=== PATIENT | female | born 1955 | race Two or more races ===

== ENCOUNTER 2021-02-20 10:05 | Outpatient (CLI) | payer OTHER ==
[~2021-02-20 10:05] MED LIST: CIPROFLOXACIN750 MG PO; CLONAZEPAM1 MG PO; COLACE100 MG PO; METHYLPRED4 MG/DOSE- PO; NABUMETONE500 MG PO; NEURONTIN300 MG PO; NEURONTIN800 MG PO; PERCOCET 5/3251 TAB PO; SYNTHROID50 MCG PO; ULTRACET PO
== END 2021-02-20 10:10 | disposition home or self-care (01) ==
LOC: SONOGRAMA 10:05
PROVIDERS: ATTEND Pathology Anatomic Pathology & Clinical Pathology
DX: D34 Benign neoplasm of thyroid gland (principal); E04.8 Other specified nontoxic goiter